=== PATIENT | female | born 1975 | race American Indian/Alaskan Native ===

== ENCOUNTER 2019-01-27 09:34 | Outpatient (CLI) | payer MEDICARE ==
[2019-01-27 10:46] LABS: Blood Urea Nitrogen 13 mg/dL (7-17)
--- NOTE | 2019-01-27 12:55 | Cat Scan Report ---
CTA CHEST HISTORY: Chest Pain. COMPARISON: None TECHNIQUE: Routine chest CT angiogram performed utilizing intravenous contrast. MIP/3D reformats wer e post-processed. Consent was obtained prior to the administration of contrast. Note: All CT scans at this location are performed using CT dose reduction employed for ALARA by means of automated exposure control. CONTRAST: 100 ml of Omnipaque 350 FINDINGS: Heart and Pericardium: Normal heart size. No significant abnormality. Pulmonary Arteries: Diagnostic pulmonary artery opacification. No significant respiratory motion. No pulmonary emboli seen. Thoracic Aorta: Normal in caliber. No dissection flap Lymphatics: No lymphadenopathy by size criteria. Lungs: No significant abnormality. Trachea and Bronchi: No significant abnormality. Osseous Structures: No significant abnormality. Additional Findings: None IMPRESSION: 1. Overall diagnostic examination. Negative for pulmonary embolism. 2. Negative for thoracic aortic dissection or thoracic aortic aneurysm. 3. Negative for pulmonary edema or pneumonia. Signer Name: Rogerio Durham MD Signed: 01/27/2019 12:51 PM Workstation Name: [id number]
== END 2019-01-27 09:35 | disposition home or self-care (01) ==
LOC: CT 09:34
PROVIDERS: ATTEND Internal Medicine Cardiovascular Disease
DX: R07.89 Other chest pain (principal)
CPT/HCPCS: 36415; 71275; 82565; 84520; 93306; Q9967